=== PATIENT | female | born 1945 | race Caucasian/White ===

== ENCOUNTER 2017-02-07 19:52 | Inpatient (IN) | payer OTHER, BC ==
[~2017-02-07] VITALS: Ht 170.2 cm; Wt 102.1 kg
[~2017-02-07 19:52] MED LIST: ACET-2858 PO; ACET-2863 PO; DIAZ10TA7 PO; LEVO0.173 PO
--- NOTE | 2017-02-07 19:53 | NUR ---
Dr. Camara evaluating patient
[2017-02-07 20:05] VITALS: BP 105/65
--- NOTE | 2017-02-07 20:06 | NUR ---
PT CARMELO BLS. TAKEN TO BED 5
[2017-02-07] MEDS ORDERED: NACL 0.9% 1,000 ML IV ONE (20:10)
--- NOTE | 2017-02-07 20:10 | NUR ---
61 Y/O F BIBA. C/O ETOH. POSSIBLE OVERDOSE OF ZOLPIDEM, UNKNOWN AMOUNT, TIME, ACCDG TO PARAMEDICS, S/P FALL TODAY WITH ABRASSIONS, ON LEFT ELBOW. ALERT AND OIRIENTED X 4, GENERAL WEAKNESS NOTED, STATES HER L UPPER THIGH IS SORE. VSS, ON SPD MANAGER. ER MD MADE AWARE.
[2017-02-07 20:32] LABS: HEMATOCRIT 37.6 % (36-48); HEMOGLOBIN 12.6 g/dL (12.0-16.0); MEAN CORPUSCULAR HEMOGLOBIN 32 pg (27-31); MEAN CORPUSCULAR HGB CONC 33 g/dL (33-37); MEAN CORPUSCULAR VOLUME 96 fL (80-94); PLATELET COUNT (AUTO) 315 K/uL (140-450); WHITE BLOOD COUNT (AUTO) 25.7 K/uL (4.8-10.8)
[2017-02-07 20:43] LABS: ANION GAP 18.7 (8-16); CALCIUM 9.1 mg/dL (8.5-10.1); CARBON DIOXIDE 19.9 mmol/L (21-32); CREATININE 1.7 mg/dL (0.6-1.3); POTASSIUM 3.6 mmol/L (3.5-5.1)
[2017-02-07 20:47] LABS: BAND % (MANUAL) 14 % (0-8); LYMPHOCYTES % (MANUAL) 5 % (20-46); MONOCYTES % (MANUAL) 5 % (5-12); NEUTROPHILS % (MANUAL) 76 (43-65); PLATELET ESTIMATE ADEQUATE
[2017-02-07 20:49] LABS: TOTAL BILIRUBIN 0.6 mg/dL (0.0-1.0); TOTAL PROTEIN, SERUM 7.8 g/dL (6.4-8.2)
--- NOTE | 2017-02-07 20:55 | NUR ---
Hannah keane in [facility] - 02/07/17 at 2055 by IRAM PT TAKEN TO BED 5
--- NOTE | 2017-02-07 20:55 | NUR ---
PT TAKEN TO CT
--- NOTE | 2017-02-07 21:07 | NUR ---
PT RETURN FROM CT
--- NOTE | 2017-02-07 21:25 | NUR ---
REPORTED TO POISON CONTROL ANDTALKED TO ZABRINA, ACCORDING TO HER NO ANTIDOTE, AND TO OBSERVE AND MONITOR OF V/S, FAUZIA ORDERED BLOOD WORKS.
[2017-02-07] MEDS ORDERED: LISI30TA6 PO (21:44)
[2017-02-07] MEDS ORDERED: NITR100C7 PO (21:44)
[2017-02-07 21:55] LABS: APPEARANCE,URINE CLEAR (CLEAR); BILIRUBIN,URINE NEGATIVE (NEGATIVE); BLOOD, URINE 2+ (NEGATIVE); COLOR,URINE YELLOW (YELLOW); LEUKOCYTE ESTERASE ,URINE NEGATIVE (NEGATIVE); NITRITE, URINE NEGATIVE (NEGATIVE); PROTEIN,URINE TRACE (NEGATIVE); UGLUCOSE NEGATIVE (NEGATIVE); UROBILINOGEN,URINE 0.2 EU/dL (0.2 - 1)
[2017-02-07 22:06] LABS: BACTERIA,URINE FEW /HPF (None Seen); MUCUS,URINE 2+ /LPF (None Seen); RBC,URINE 0-5 /HPF (0-5); SQUAMOUS EPITHELIAL CELL,UR 0-5 /LPF (0-3 (FEW)); URINE AMORPHOUS URATE 1+ /HPF (None Seen); WBC,URINE 0-5 /HPF (0-5)
--- NOTE | 2017-02-07 22:20 | NUR ---
PT SLEEPING, ON GERMINATION WORKER, VSS. WILL CONT TO MONITOR.
[2017-02-07] MEDS ORDERED: ONDANSETRON 4 MG/2 ML VIAL IM/IVP PRN (23:00)
[2017-02-07] MEDS ORDERED: ACETAMINOPHEN 325 MG TAB PO PRN (23:00)
[2017-02-07] MEDS ORDERED: DOCUSATE SODIUM 100 MG GELCAP PO PRN (23:00)
[2017-02-07] MEDS ORDERED: LORazepam 1 MG TAB PO PRN ×2 (23:10)
--- NOTE | 2017-02-07 23:21 | NUR ---
DAUGHTER CALLED IN REGARDS TO CODE STATUS D/T PT STATES SHE IS DNR BUT THERE IS NO PAPER AVAILABLE STAYING THE DNR CODE. DAUGHTER STATES SHE DOES NOT KNOW ABOUT HER MOTHER DNR WISHES BUT STATES SHE WILL LOOK FOR DNR PAPER AND BRING IT TO HOSPITAL. CHARGE NURSE, AND HOUSE SUP NOTIFIED.
--- NOTE | 2017-02-07 23:27 | NUR ---
PER ER MD TO KEEP PT FULL CODE UNTIL WE ERECEIVED DNR CRISTIAN, D/T PT' S ALTERED MENTAL STATUS.
--- NOTE | 2017-02-08 | NUR ---
Patient will be admitted to care of DR PINO. Admited to TELEMETRY. Will go to room 123 A. Belongings list completed. Report to EVAN DEVRIES.
[2017-02-08 00:02] LABS: PROTHROMBIN TIME 10.6 secs (10.8-13.4)
--- NOTE | 2017-02-08 00:10 | NUR ---
RESIDENT MD EVALUATING PT.
--- NOTE | 2017-02-08 00:17 | NUR ---
PT TAKING TO FLOOR VIA GURNEY, MONITOR IN BED, ACCOMPANIED BY EMT AND RN, NO S/S OF DISTRESS NOTED UPON TRASFER.
[2017-02-08 00:25] VITALS: BP 116/57
--- NOTE | 2017-02-08 00:25 | NUR ---
Admitted from ER, with chief complaint of ALOC, S/P FALL, ALCOHOL INTOXICATION. 71 y/o, Female, AOX1, ABLE TO VERBALIZE NEEDS, CONFUSED AT TIMES, ANSWERS QUESTIONS VAGUELY AT TIMES. PT DENIES CHEST PAIN, SOB OR S/S OF ACUTE DISTRESS. SODA FLAKER IN PLACE. KUO CATH IN PLACE, DRAINING DARK ROBBIE URINE. SCDs PUT IN PLACE. IV ACCESS ASYMPTOMATIC, PATENT AND INTACT, WILL ADMINISTER IVF ORDERED oriented to call light, bed, phone,television, bathroom, smoking policy, visiting hours, procedures, ID bracelet on. Belongings list checked. DISCUSSED AND REVIEWED PLAN OF CARE WITH PT. WILL CONTINUE CONSTANT REINFORCEMENT. BED ALARM AND SAFETY MEASURES ENSURED. CALL LIGHT WITHIN REACH. WILL CONTINUE TO MONITOR.
[2017-02-08] MEDS: NACL 0.9% 1,000 ML IV SCH ×2 (00:43→15:43)
[2017-02-08 01:12] LABS: LACTIC ACID 4.6 mmol/L (0.4-2.0)
[2017-02-08 01:14] LABS: AMPHETAMINE, URINE NEG. ng/ml (NEG <=1000); BARBITURATE, URINE NEG. ng/ml (NEG <=200); BENZODIAZEPINE, URINE POS. ng/mL (NEG <=200); CANNABINOID, URINE NEG. ng/mL (NEG <=50); COCAINE, URINE NEG. ng/mL (NEG <=300); OPIATE, URINE POS. ng/mL (NEG <=2000); PHENCYCLIDINE SCREEN,URINE NEG. ng/mL (NEG <=25)
--- NOTE | 2017-02-08 01:20 | NUR ---
CALLED DR SANTOS, MADE AWARE OF LACTIC ACID 4.6 AND THAT PT IS STILL REFUSING HAVING BLOOD CULTURES DRAWN. ORDERS PENDING, WILL CARRY OUT.
[2017-02-08 02:18] LABS: MAGNESIUM 1.8 mg/dL (1.8-2.4); PHOSPHORUS 3.9 mg/dL (2.5-4.9); THYROID STIMULATING HORMONE 47.29 uIU/mL (0.34-3.74)
[2017-02-08] MEDS ORDERED: cefTRIAXone 1,000 MG VIAL ONE (02:45)
--- NOTE | 2017-02-08 02:49 | NUR ---
ADMINISTERED IVPB ROCEPHIN FIRST DOSE AT THIS TIME WITH EDUCATION ORDERED, INFUSING WELL. PROVIDED PT WITH SANDWICH AND JELLO. ALL NEEDS MET. SAFETY MEASURES ENSURED. CALL LIGHT WITHIN REACH. WILL CONTINUE TO MONITOR.
[2017-02-08 04:00] VITALS: BP 103/78
[2017-02-08] MEDS: LORazepam 1 MG TAB PO SCH ×3 (04:08→20:07)
--- NOTE | 2017-02-08 04:15 | NUR ---
PT RESTING IN BED, NO S/S OF ACUTE DISTRESS. ALL NEEDS MET. SAFETY MEASURES ENSURED. CALL LIGHT WITHIN REACH. DASHBOARD DEVELOPER IN TO TRY TO COLLECT BLOOD CULTURE, PT REFUSED AGAIN, STATING "NO, I DON'T WANT ANYTHING FOR ANALYSIS." AWARE.
[2017-02-08] MEDS ORDERED: LEVOFLOXACIN 500 MG/D5W PREMIX 100 ML IV SCH ×2 (06:15→09:00)
--- NOTE | 2017-02-08 06:58 | NUR ---
PATIENT REFUSING ABG PUNCTURE FOR ANALYSIS
--- NOTE | 2017-02-08 07:15 | NUR ---
ENDORSED PLAN OF CARE TO AM NURSE. CONDITION STABLE.
--- NOTE | 2017-02-08 07:16 | NUR ---
RECEIVED REPORT FROM NIGHT NURSE AT PT BEDSIDE. ON THE PHONE WITH DAUGHTER. NO S/S OF ACUTE DISTRESS NOTED. IV SITE PATENT AND INTACT. ALERT AND ORIENTED TO TIME AND PLACE. DENIES PAIN. AGITATED, ANXIOUS ATTEMPTING TO LEAVE HOSPITAL BED. KUO IN PLACE TO GRAVITY IN MODERATE AMOUNT. REORIENTED PATIENT TO HOSPITAL ENVIRONMENT. VERBALIZED UNDERSTANDING. PATIENT HAS PERIODS OF CONFUSION. CALL LIGHT WITHIN REACH.
--- NOTE | 2017-02-08 07:55 | NUR ---
PATIENT HAS BEEN SCREENED AND CATEGORIZED HIGH NUTRITION RISK. PATIENT WILL BE SEEN WITHIN 1-2 DAYS OF ADMISSION. 02/08/17-02/09/[address]
[2017-02-08 08:00] VITALS: BP 130/60
[2017-02-08] MEDS ORDERED: LORazepam 2 MG/ML VIAL IM/IVP PRN ×2 (08:15)
[2017-02-08] MEDS ORDERED: CLINICAL MONITORING MC PRN (08:20)
[2017-02-08] MEDS: LISINOPRIL 10 MG TAB PO SCH (08:21)
[2017-02-08] MEDS: MULTIVITAMIN 1 TAB PO SCH (08:21)
[2017-02-08] MEDS: THIAMINE 100 MG TAB PO SCH (08:21)
[2017-02-08] MEDS: FOLIC ACID 1 MG TAB PO SCH (08:22)
[2017-02-08] MEDS: LACTOBACILLUS RHAMNOSUS GG 1 EACH CAP PO SCH (08:22)
--- NOTE | 2017-02-08 08:40 | NUR ---
PATIENT BECOMING RESTLESS, ATTEMPTING TO GET UP WITHOUT ASSISTANCE. PER DR. DUMAS GIVE ATIVAN PO 2MG ORDERED PER AGITATION/ANXIETY. MEDICATION ADMINISTERED ORIENTED PT BACK INTO BED.
[2017-02-08] MEDS ORDERED: NITROFURANTOIN 100 MG CAP PO SCH (09:00)
[2017-02-08] MEDS ORDERED: LEVOTHYROXINE 0.1 MG, LEVOTHYROXINE 0.075 MG PO SCH ×2 (09:00)
[2017-02-08] MEDS ORDERED: NON-FORMULARY ITEM (Levothyroxine Sodium* (Synthroid*) 0.175 MG) PO SCH (09:00)
[2017-02-08] MEDS ORDERED: TAMSULOSIN 0.4 MG CAP PO SCH (09:00)
--- NOTE | 2017-02-08 11:20 | NUR ---
PATIENT SITTING UP AT BEDSIDE TALKING WITH FRIEND. NO S/S OF ACUTE DISTRESS NOTED.
--- NOTE | 2017-02-08 11:36 | NUR ---
PATIENT SLEEPING IN BED. NO S/S OF ACUTE DISTRESS.
[2017-02-08 12:00] VITALS: BP 150/52
[2017-02-08] MEDS: CLINDAMYCIN 600 MG in DEXTROSE 5% 50 ML IV SCH ×3 (12:47→23:52)
[2017-02-08] MEDS: HYDROcodone/APAP 7.5/325 MG 1 TAB PO PRN ×2 (12:50→20:27)
[2017-02-08 13:00] LABS: BASOPHILS # (AUTO) 0.1 K/uL (0.00-0.22); BASOPHILS % (AUTO) 1.2 % (0.0-2.0); EOSINOPHILS # (AUTO) 0.2 K/uL (0-0.4); EOSINOPHILS % (AUTO) 1.8 % (0.0-4.0); HEMATOCRIT 33.4 % (36-48); LYMPHOCYTES # (AUTO) 2.5 K/uL (2.5-16.5); LYMPHOCYTES % (AUTO) 23.2 % (20.5-51.1); MEAN CORPUSCULAR HEMOGLOBIN 31 pg (27-31); MEAN CORPUSCULAR HGB CONC 33 g/dL (33-37); MEAN CORPUSCULAR VOLUME 96 fL (80-94); MONOCYTES # (AUTO) 0.6 K/uL (0.8-1.0); MONOCYTES % (AUTO) 5.9 % (1.7-9.3); NEUTROPHILS # (AUTO) 7.4 K/uL (1.8-7.7); NEUTROPHILS % (AUTO) 67.9 % (42.2-75.2); PLATELET COUNT (AUTO) 270 K/uL (140-450); RED CELL DISTRIBUTION WIDTH 13.2 % (11.6-13.7); WHITE BLOOD COUNT (AUTO) 10.8 K/uL (4.8-10.8)
[2017-02-08 13:20] LABS: ANION GAP 8.9 (8-16); CALCIUM 8.4 mg/dL (8.5-10.1); CARBON DIOXIDE 28.3 mmol/L (21-32); CREATININE 1.3 mg/dL (0.6-1.3); POTASSIUM 4.2 mmol/L (3.5-5.1)
[2017-02-08 13:28] LABS: MAGNESIUM 1.8 mg/dL (1.8-2.4); PHOSPHORUS 2.5 mg/dL (2.5-4.9)
--- NOTE | 2017-02-08 14:09 | NUR ---
02/08/17 RD INITIAL ASSESSMENT COMPLETED PLEASE REFER TO NUTRITION ASSESSMENT UNDER CARE ACTIVITY FOR ESTIMATED NUTRITIONAL NEEDS. 1. CONTINUE CARDIAC DIET 2. RD TO FOLLOW-UP IN 3-5 DAYS, MODERATE RISK KIP ANDERSON RD
[2017-02-08] MEDS ORDERED: DOXY25TA PO (14:36)
[2017-02-08] MEDS ORDERED: HYDR-4452 PO (14:36)
[2017-02-08] MEDS ORDERED: YEAST (14:36)
[2017-02-08] MEDS ORDERED: ZOLP10TA6 PO (14:36)
--- NOTE | 2017-02-08 14:52 | NUR ---
SS NOTE: I ATTEMPTED TO SPEAK WITH PT BEDSIDE, PT WAS AGITATED. PT STATED THAT SHE IS CURRENTLY STAYING IN A MOTEL WHILE HER HOME IS GETTING REPAIRED. I ATTEMPTED TO ASK PT ADDITIONAL QUESTIONS REGARDING HER PRIOR LEVEL OF FUNCTIONING AND PROVIDE ETOH ABUSE RESOURCES BUT PT REFUSED TO PROVIDE ANY ADDITIONAL INFORMATION, WILL FOLLOW UP WITH PT AT A LATER TIME.
[2017-02-08 16:00] VITALS: BP 106/55
--- NOTE | 2017-02-08 16:00 | NUR ---
PT SLEEPING IN BED. NO S/S OF ACUTE DISTRESS NOTED.
--- NOTE | 2017-02-08 16:28 | NUR ---
ASLEEP EASILY AWAKENS IN SFW POSITION NO RESPIRATORY DISTRESS NOTED PATIENT REFUSING INCENTIVE SPIROMETRY PROCEDURE AT THIS TIME PATIENT STATES "WANTS TO SLEEP WILL DO LATER ON"
--- NOTE | 2017-02-08 18:00 | NUR ---
ASSISTED PATIENT TO BEDSIDE COMMODE. AMBULATORY WITH ASSIST. KUO IN PLACE TO GRAVITY IN MODERATE AMOUNT. NO S/S OF ACUTE DISTRESS NOTED.
--- NOTE | 2017-02-08 19:19 | NUR ---
ENDORSED PLAN OF CARE TO NIGHT RN KAYCE AT PT BEDSIDE. NO S/S OF ACUTE DISTRESS NOTED.
--- NOTE | 2017-02-08 19:20 | NUR ---
RECEIVED REPORT FROM AM NURSE. PT RESTING IN BED, AOX3, ABLE TO VERBALIZE NEEDS. NO S/S OF ACUTE DISTRESS. LOCATION AND MEASUREMENT TECHNICIAN IN PLACE. KUO CATH IN PLACE, DRAINING CLEAR ROBBIE URINE. SCDs IN PLACE. IV ACCESS ASYMPTOMATIC, PATENT AND INTACT. IVF INFUSING WELL. DISCUSSED AND REVIEWED PLAN OF CARE WITH PT. PT STATED "OKAY." ALL NEEDS MET. SAFETY MEASURES ENSURED. CALL LIGHT WITHIN REACH. WILL CONTINUE TO MONITOR.
[2017-02-08 20:00] VITALS: BP 123/57
--- NOTE | 2017-02-08 20:07 | NUR ---
PT SLEEPING BUT AROUSABLE. ADMINISTERED ATIVAN PO WITH EDUCATION. PT STATED "OKAY," TOLERATED MED WELL. ALL NEEDS MET. SAFETY MEASURES ENSURED. CALL LIGHT WITHIN REACH. WILL CONTINUE TO MONITOR.
--- NOTE | 2017-02-08 20:30 | NUR ---
PT C/O PAIN. SEE PAIN ASSESSMENT. ADMINISTERED PAIN MED ORDERED. PT TOLERATED MED WELL. ALL NEEDS MET. SAFETY MEASURES ENSURED. CALL LIGHT WITHIN REACH. WILL CONTINUE TO MONITOR.
[2017-02-09] VITALS: BP 151/76
[2017-02-09] MEDS: MORPHINE SULFATE 2 MG/ML SYR IVP PRN ×3 (00:09→23:41)
--- NOTE | 2017-02-09 00:09 | NUR ---
PT C/O PAIN. SEE PAIN ASSESSMENT. ADMINISTERED PAIN MEDICATION WITH EDUCATION ORDERED. PT VERBALIZED UNDERSTANDING, TOLERATED MED WELL. ALL NEEDS MET. SAFETY MEASURES ENSURED. CALL LIGHT WITHIN REACH. WILL CONTINUE TO MONITOR.
[2017-02-09] MEDS: NACL 0.9% 1,000 ML IV SCH ×2 (02:01→15:17)
[2017-02-09] MEDS: HYDROcodone/APAP 7.5/325 MG 1 TAB PO PRN ×2 (03:45→08:07)
[2017-02-09 04:00] VITALS: BP 125/58
[2017-02-09] MEDS: LORazepam 1 MG TAB PO SCH ×3 (05:14→20:18)
[2017-02-09] MEDS: CLINDAMYCIN 600 MG in DEXTROSE 5% 50 ML IV SCH ×4 (05:15→23:32)
[2017-02-09 05:53] LABS: BASOPHILS # (AUTO) 0.2 K/uL (0.00-0.22); BASOPHILS % (AUTO) 1.8 % (0.0-2.0); EOSINOPHILS # (AUTO) 0.2 K/uL (0-0.4); EOSINOPHILS % (AUTO) 2.5 % (0.0-4.0); HEMATOCRIT 30.9 % (36-48); HEMOGLOBIN 10.2 g/dL (12.0-16.0); LYMPHOCYTES # (AUTO) 2.3 K/uL (2.5-16.5); LYMPHOCYTES % (AUTO) 27.3 % (20.5-51.1); MEAN CORPUSCULAR HEMOGLOBIN 32 pg (27-31); MEAN CORPUSCULAR HGB CONC 33 g/dL (33-37); MEAN CORPUSCULAR VOLUME 97 fL (80-94); MONOCYTES # (AUTO) 0.5 K/uL (0.8-1.0); MONOCYTES % (AUTO) 5.5 % (1.7-9.3); NEUTROPHILS # (AUTO) 5.3 K/uL (1.8-7.7); NEUTROPHILS % (AUTO) 62.9 % (42.2-75.2); PLATELET COUNT (AUTO) 214 K/uL (140-450); RED BLOOD CELL COUNT(AUTO) 3.19 MIL/uL (4.20-5.40); WHITE BLOOD COUNT (AUTO) 8.5 K/uL (4.8-10.8)
[2017-02-09 06:06] LABS: ANION GAP 10.2 (8-16); CALCIUM 8.3 mg/dL (8.5-10.1); CARBON DIOXIDE 27.5 mmol/L (21-32); CREATININE 1.2 mg/dL (0.6-1.3); POTASSIUM 3.7 mmol/L (3.5-5.1)
[2017-02-09 06:15] LABS: MAGNESIUM 1.8 mg/dL (1.8-2.4)
[2017-02-09] MEDS: LEVOTHYROXINE 0.1 MG TAB PO SCH (06:49)
--- NOTE | 2017-02-09 07:20 | NUR ---
ENDORSED PLAN OF CARE TO AM NURSE. CONDITION STABLE.
--- NOTE | 2017-02-09 07:21 | NUR ---
RECEIVED REPORT BY EVAN DEVRIES. PATIENT AWAKE, ALERT AND ORIENTED X3. NO SIGNS AND SYMPTOMS OF RESPIRATORY DISTRESS NOTED. PATIENT REPORTED PAIN LEVEL OF 10 OUT OF 10. NOTIFIED MD. MEDICATE ORDERED. AMBULATORY WITH ASSISTANCE. SCD'S IN PLACE. PERIPHERAL IV CLEAN, DRY, INTACT, AND PATENT. CALL LIGHT WITHIN REACH.
[2017-02-09 08:00] VITALS: BP 153/75
[2017-02-09] MEDS: TAMSULOSIN 0.4 MG CAP PO SCH (08:02)
[2017-02-09] MEDS: LEVOFLOXACIN 250 MG/D5 PREMIX 50 ML IV SCH (08:03)
[2017-02-09] MEDS: LACTOBACILLUS RHAMNOSUS GG 1 EACH CAP PO SCH (08:03)
[2017-02-09] MEDS: FOLIC ACID 1 MG TAB PO SCH (08:03)
[2017-02-09] MEDS: THIAMINE 100 MG TAB PO SCH (08:04)
[2017-02-09] MEDS: LISINOPRIL 10 MG TAB PO SCH (08:06)
[2017-02-09] MEDS: MULTIVITAMIN 1 TAB PO SCH (08:07)
--- NOTE | 2017-02-09 08:21 | NUR ---
PATIENT SEEN BY DR. BOGGS AT BEDSIDE. OKAY TO REMOVE KUO CATH AT THIS TIME. PATIENT C/O RIGHT SIDED ABDOMINAL PAIN, NEW ORDERS RECEIVED. REMOVED KUO CATH AT BEDSIDE, WILL CONTINUE TO MONITOR.
[2017-02-09] MEDS: SODIUM PHOS / POTASSIUM PHOS 1 PKT PDR PO SCH ×4 (09:00→17:23)
[2017-02-09 09:13] LABS: HEMOGLOBIN A1C 4.5 % (4.8-5.6)
[2017-02-09 09:14] LABS: T4 (THYROXINE) 4.4 ug/dL (4.5 - 12.0)
--- NOTE | 2017-02-09 09:15 | NUR ---
PATIENTS DAUGHTER AT BEDSIDE, SHE SPOKE WITH DR. HARRIS.
--- NOTE | 2017-02-09 09:20 | NUR ---
ASSISTED PATIENT WITH AMBULATION TO THE RESTROOM. NO S/S OF DISTRESS NOTED.
[2017-02-09] MEDS ORDERED: DULoxetine 30 MG CAPDR PO SCH (10:59)
[2017-02-09] MEDS: MUPIROCIN 2% OINT 22 GM TUBE TP SCH (11:00)
[2017-02-09] MEDS: CHLORHEXADINE GLUC 2% CLOTH TP SCH (11:00)
--- NOTE | 2017-02-09 11:00 | NUR ---
SS NOTE: I SPOKE WITH PT AND PT'S DTR, HEIDY STILES. PT STATED THAT SHE IS IN AGREEMENT WITH GOING TO SNF FOR PT AND [facility] SHE ALSO STATED THAT [facility] AND THIRD [facility].
--- NOTE | 2017-02-09 11:16 | NUR ---
SS NOTE: PER SUDHEER FROM [facility] ([phone]), PT CAN GO TO ROOM 21B UNDER DR. Burt PEREZ WHEN PT IS READY FOR DISCHARGE. PT'S DTRHEIDY MADE AWARE OF THE ABOVE INFORMATION.
[2017-02-09 12:00] VITALS: BP 136/66
--- NOTE | 2017-02-09 13:55 | NUR ---
ASSISTED PATIENT WITH AMBULATION TO THE RESTROOM. PATIENT HAD NO SIGNS AND SYMPTOMS OF DISTRESS AT THIS TIME. PATIENT COMPLAINED OF PAIN WHEN LAID DOWN IN BED. WILL MEDICATE ORDERED.
[2017-02-09] MEDS: oxyCODONE/APAP 5/325 MG 1 TAB TAB PO PRN (14:03)
[2017-02-09 16:00] VITALS: BP 131/58
--- NOTE | 2017-02-09 19:13 | NUR ---
GAVE REPORT TO TAYLOR AT BEDSIDE. PATIENT AWAKE, NO SIGNS AND SYMPTOMS OF DISTRESS NOTED.
--- NOTE | 2017-02-09 19:14 | NUR ---
RECEIVED REPORT FROM DAY RN FOR CONTINUITY OF CARE. PATIENT IS ALERT AND ORIENTED X3, DISCUSSED PLAN OF CARE WITH PATIENT, VERBALIZED UNDERSTANDING BUT REINFORCEMENT PROVIDED. SHIFT ASSESSMENT DONE, VITAL SIGNS STABLE. NO S/SX OF RESPIRATORY DISTRESS NOTED ON ROOM AIR. PATIENT C/O PAIN WILL MEDICATE PER MD ORDER. IV TO LT HAND PATENT AND INFUSING FLUIDS WELL. PATIENT HAS LEFT ELBOW ABRASION AND BRUISING NOTED TO KNEES AND UPPER ARM. SAFETY/FALL/ CONTACT PRECAUTIONS ENFORCED, CALL LIGHT WITHIN REACH. WILL CONTINUE TO MONITOR.
[2017-02-09 20:00] VITALS: BP 140/63
--- NOTE | 2017-02-09 20:18 | NUR ---
DUE MEDICATIONS ADMINISTERED PER MD ORDER. PATIENT MEDICATED FOR C/O ABDOMINAL PAIN, VITAL SIGNS STABLE. CALL LIGHT WITHIN REACH.
--- NOTE | 2017-02-09 22:00 | NUR ---
PATIENT ASSISTED TO BATHROOM , VOIDED. RETURNED TO BED AND REPOSITIONED FOR COMFORT, CALL LIGHT WITHIN REACH. WILL CONTINUE TO MONITOR.
--- NOTE | 2017-02-09 23:32 | NUR ---
DUE ANTIBIOTICS ADMINISTERED, TOLERATED WELL. PT C/O BACK PAIN, WILL MEDICATE PER MD ORDER. CALL LIGHT WITHIN REACH, WILL CONTINUE TO MONITOR.
[2017-02-10] VITALS (7 sets, daily range): BP systolic 120–157; BP diastolic 57–90
[2017-02-10] MEDS: oxyCODONE/APAP 5/325 MG 1 TAB TAB PO PRN (01:48)
--- NOTE | 2017-02-10 01:48 | NUR ---
PT C/O BACK PAIN, MEDICATED PER MD ORDER, VITAL SIGNS STABLE. REPOSITIONED PATIENT AND MADE COMFORTABLE. CALL LIGHT WITHIN REACH.
[2017-02-10] MEDS: MORPHINE SULFATE 2 MG/ML SYR IVP PRN ×3 (04:04→23:18)
[2017-02-10] MEDS: NACL 0.9% 1,000 ML IV SCH (04:04)
--- NOTE | 2017-02-10 04:04 | NUR ---
PATIENT C/O BACK PAIN, MEDICATED PER MD ORDER. VITAL SIGNS REMAIN STABLE. PATIENT ASSISTED TO RESTROOM, VOIDED. RETURNED TO BED AND MADE COMFORTABLE. CALL LIGHT WITHIN REACH, SAFETY MEASURES ENFORCED.
[2017-02-10] MEDS: LORazepam 1 MG TAB PO SCH ×3 (04:33→20:54)
[2017-02-10 05:58] LABS: BASOPHILS # (AUTO) 0.2 K/uL (0.00-0.22); EOSINOPHILS # (AUTO) 0.2 K/uL (0-0.4); HEMATOCRIT 31.5 % (36-48); HEMOGLOBIN 10.3 g/dL (12.0-16.0); LYMPHOCYTES # (AUTO) 2.5 K/uL (2.5-16.5); LYMPHOCYTES % (AUTO) 32.5 % (20.5-51.1); MEAN CORPUSCULAR HEMOGLOBIN 32 pg (27-31); MEAN CORPUSCULAR HGB CONC 33 g/dL (33-37); MEAN CORPUSCULAR VOLUME 97 fL (80-94); MONOCYTES # (AUTO) 0.5 K/uL (0.8-1.0); MONOCYTES % (AUTO) 6.5 % (1.7-9.3); NEUTROPHILS # (AUTO) 4.3 K/uL (1.8-7.7); PLATELET COUNT (AUTO) 227 K/uL (140-450); RED BLOOD CELL COUNT(AUTO) 3.24 MIL/uL (4.20-5.40); RED CELL DISTRIBUTION WIDTH 12.9 % (11.6-13.7); WHITE BLOOD COUNT (AUTO) 7.7 K/uL (4.8-10.8)
[2017-02-10] MEDS: CLINDAMYCIN 600 MG in DEXTROSE 5% 50 ML IV SCH ×4 (06:16→23:18)
[2017-02-10] MEDS: LEVOTHYROXINE 0.1 MG TAB PO SCH (06:17)
--- NOTE | 2017-02-10 06:17 | NUR ---
DUE MEDICATIONS ADMINISTERED, TOLERATED WELL. PATIENT RESTING IN BED, NO DISTRESS NOTED. CALL LIGHT WITHIN REACH.
[2017-02-10 06:23] LABS: ANION GAP 12.7 (8-16); CALCIUM 8.3 mg/dL (8.5-10.1); CARBON DIOXIDE 23.9 mmol/L (21-32); CREATININE 0.8 mg/dL (0.6-1.3); POTASSIUM 3.6 mmol/L (3.5-5.1)
--- NOTE | 2017-02-10 07:21 | NUR ---
ENDORSED PATIENT TO DAY RN AT BEDSIDE, PATIENT IS IN STABLE CONDITION.
--- NOTE | 2017-02-10 07:30 | NUR ---
RECEIVED PT ON BED AWAKE. NO SOB NOTED. NO C/O PAIN AT THIS TIME. IV TO LEFT HAND PATENT AND INTACT. CHEST, DIMINISHED AIR ENTRY TO THE BASES, OTHERWISE CLEAR. ABDOMEN SOFT, BOWEL SOUNDS PRESENT. INSTRUCTED PT TO CALL FOR ASSISTANCE, CALL LIGHT WITHIN REACH. PT VERBALIZED PARTIAL UNDERSTANDING.
--- NOTE | 2017-02-10 08:00 | NUR ---
RECEIVED PT ON BED AWAKE. NO SOB NOTED. NO C/O PAIN AT THIS TIME. IV TO LEFT HAND PATENT AND INTACT. CHEST, DIMINISHED AIR ENTRY TO THE BASES, OTHERWISE CLEAR. ABDOMEN SOFT, BOWEL SOUNDS PRESENT. INSTRUCTED PT TO CALL FOR ASSISTANCE, CALL LIGHT WITHIN REACH. PT VERBALIZED UNDERSTANDING. Addendum: 02/10/17 at 1026 by Samia Hernandez RN DISREGARD ABOVE NOTES. WRONG ENTRY.
[2017-02-10] MEDS: LISINOPRIL 10 MG TAB PO SCH (08:53)
[2017-02-10] MEDS: THIAMINE 100 MG TAB PO SCH (08:54)
[2017-02-10] MEDS: LACTOBACILLUS RHAMNOSUS GG 1 EACH CAP PO SCH (08:54)
[2017-02-10] MEDS: FOLIC ACID 1 MG TAB PO SCH (08:54)
[2017-02-10] MEDS: TAMSULOSIN 0.4 MG CAP PO SCH (08:54)
[2017-02-10] MEDS: MULTIVITAMIN 1 TAB PO SCH (08:54)
[2017-02-10] MEDS: DULoxetine 30 MG CAPDR PO SCH (08:55)
[2017-02-10] MEDS: LEVOFLOXACIN 250 MG/D5 PREMIX 50 ML IV SCH (09:07)
[2017-02-10] MEDS: CHLORHEXADINE GLUC 2% CLOTH TP SCH (11:00)
[2017-02-10] MEDS ORDERED: IMI25 PO (11:44)
[2017-02-10] MEDS: MUPIROCIN 2% OINT 22 GM TUBE TP SCH (13:14)
--- NOTE | 2017-02-10 15:15 | NUR ---
PATIENT STATED A PAIN OF 9 OUT OF 10.
--- NOTE | 2017-02-10 15:15 | NUR ---
GAVE PATIENT MORPHINE 2MG/1ML VIA IV. SCANNED PATIENT AND SCANNED MEDICATION, UNABLE TO SAVE.
--- NOTE | 2017-02-10 19:20 | NUR ---
pt resting. no signs of pain noted at this time. endorsed to next shift nurse for continuity of care.
--- NOTE | 2017-02-10 19:25 | NUR ---
RECEIVED FROM AM RN IN BED SLEEPING. AROUSABLE WHEN CALLED BY NAME OR TOUCHED. ABLE TO VERBALIZE NEEDS WELL. TELEMETRY MONITORING IN PLACE AND DX OF ETOH. CALL LIGHT WITH IN REACH AND CARE PLANS FOR THE NIGHT DISCUSSED WITH HER. BED ALARM ON. ENCOURAGED TO CALL FOR ANY HELP SHE MAY NEED OR IF IN PAIN.
--- NOTE | 2017-02-10 22:00 | NUR ---
PT. ABLE TO USE CALL LIGHT FOR HELP. ASSISTED BY SENIOR GAME DESIGNER TO RESTROOM INSIDE ROOM TO URINATE. TOLERATED WALKING INDEPENDENTLY WITH STANDBY ASSIST BY SENIOR GAME DESIGNER.
--- NOTE | 2017-02-10 23:15 | NUR ---
MEDICATED WITH MORPHINE 2 MG IVP REQUESTED RT "I REALLY HURT ALL OVER " PT. GRIMACING . ASSISSTED TO RESTROOM TO URINATE. NO UNTOWARD INCIDENT .
--- NOTE | 2017-02-11 00:12 | NUR ---
SLEEPING AT THIS TIME.
[2017-02-11] MEDS: oxyCODONE/APAP 5/325 MG 1 TAB TAB PO PRN ×2 (01:38→11:06)
--- NOTE | 2017-02-11 01:39 | NUR ---
PT. WOKE UP AND ASSISTED TO BRP BY FAMILY REUNIFICATION SPECIALIST. PER PT. SHE IS STILL IN PAIN AND WONDERING IF I GAVE HER PAIN RELIEVER. PT. HAS EPISODES OF FORGETFULNESS. EXPLAINED TO HER THAT SHE SAID THAT SHE DO NOT WANT ANYTHING WITH TYLENOL RT IT IS NOT EFFECTIVE ON HER . PER PT. MORPHINE IVP THAT I GAVE HER IS NOT EFFECTIVE RIGHT NOW. PREFERS PERCOCET. ADMINISTERED REQUESTED. PT. BACK TO SLEEP.
--- NOTE | 2017-02-11 02:46 | NUR ---
TALKED TO THE DAUGHTER ON THE PHONE/BILLY AND TOLD ME THAT HER MOTHER IS REALLY NOT ALL THERE AND THAT LATELY SHE HAS BEEN MEAN AND TELLING LIES. PACIFIED DAUGHTER THAT SHE IS SICK AND THAT WHERE SHE IS BEING TRANSFERRED THERE WILL BE DOCTORS ASSIGNED TO HER IN THERE TO TAKE CARE OF HER TOO. DAUGHTER THANKFUL OF INFORMATION AND HELP FROM OUR FACILITY. CHECKED ON PT. AND AT PRESENT SLEEPING. BED ALARM ON. WILL MONITOR.
[2017-02-11 04:00] VITALS: BP 130/75
[2017-02-11] MEDS: NACL 0.9% 1,000 ML IV SCH (04:20)
--- NOTE | 2017-02-11 04:34 | NUR ---
SLEEPING. NO RESTLESSNESS. NO SOB. CALL LIGHT WITH IN REACH. TELEMETRY MONITORING. FALL PRECAUTION.
[2017-02-11] MEDS: LEVOTHYROXINE 0.1 MG TAB PO SCH (05:32)
[2017-02-11] MEDS: CLINDAMYCIN 600 MG in DEXTROSE 5% 50 ML IV SCH ×2 (05:32→12:39)
[2017-02-11] MEDS: LORazepam 1 MG TAB PO SCH ×2 (05:33→14:07)
[2017-02-11 06:15] LABS: BASOPHILS # (AUTO) 0.1 K/uL (0.00-0.22); BASOPHILS % (AUTO) 1.6 % (0.0-2.0); EOSINOPHILS # (AUTO) 0.2 K/uL (0-0.4); EOSINOPHILS % (AUTO) 2.2 % (0.0-4.0); HEMOGLOBIN 11.5 g/dL (12.0-16.0); LYMPHOCYTES # (AUTO) 2.7 K/uL (2.5-16.5); LYMPHOCYTES % (AUTO) 33.8 % (20.5-51.1); MEAN CORPUSCULAR HEMOGLOBIN 33 pg (27-31); MEAN CORPUSCULAR HGB CONC 34 g/dL (33-37); MEAN CORPUSCULAR VOLUME 97 fL (80-94); MONOCYTES # (AUTO) 0.5 K/uL (0.8-1.0); MONOCYTES % (AUTO) 5.9 % (1.7-9.3); NEUTROPHILS # (AUTO) 4.6 K/uL (1.8-7.7); NEUTROPHILS % (AUTO) 56.5 % (42.2-75.2); PLATELET COUNT (AUTO) 244 K/uL (140-450); RED BLOOD CELL COUNT(AUTO) 3.51 MIL/uL (4.20-5.40); WHITE BLOOD COUNT (AUTO) 8.1 K/uL (4.8-10.8)
--- NOTE | 2017-02-11 06:38 | NUR ---
AWAKE AT THIS TIME. ASSISTED TO RESTROOM. USES CALL LIGHT FOR HELP. PT. NOTED WITH CONFUSION AT TIMES. TELEMETRY MONITORING. IVF SITE TO LFA INTACT AND NO INFILTRATION.
[2017-02-11 06:40] LABS: ANION GAP 14.9 (8-16); CALCIUM 8.9 mg/dL (8.5-10.1); CARBON DIOXIDE 23.6 mmol/L (21-32); CREATININE 0.8 mg/dL (0.6-1.3); POTASSIUM 3.5 mmol/L (3.5-5.1)
--- NOTE | 2017-02-11 07:17 | NUR ---
ENDORSED TO THE NEXT RN FOR CONTINUITY OF CARE. AWAKE AND ALERT. NO SOB. NO PAIN COMPLAINTS DONE. TELEMETRY MONITORING. INDEPENDENT.
--- NOTE | 2017-02-11 07:30 | NUR ---
RECEIVED PT ON BED AWAKE AND ALERT. NO SOB NOTED. NO C/O PAIN AT THIS TIME. IV TO LEFT HAND PATENT AND INTACT. CHEST, DIMINISHED AIR ENTRY TO THE BASES, OTHERWISE CLEAR. ABDOMEN SOFT, BOWEL SOUNDS PRESENT. INSTRUCTED PT TO CALL FOR ASSISTANCE, CALL LIGHT WITHIN REACH. PT VERBALIZED PARTIAL UNDERSTANDING.
[2017-02-11 08:00] VITALS: BP 155/80
[2017-02-11] MEDS: LACTOBACILLUS RHAMNOSUS GG 1 EACH CAP PO SCH (08:45)
[2017-02-11] MEDS: DULoxetine 30 MG CAPDR PO SCH (08:45)
[2017-02-11] MEDS: TAMSULOSIN 0.4 MG CAP PO SCH (08:45)
[2017-02-11] MEDS: LEVOFLOXACIN 250 MG/D5 PREMIX 50 ML IV SCH (08:45)
[2017-02-11] MEDS: FOLIC ACID 1 MG TAB PO SCH (08:46)
[2017-02-11] MEDS: THIAMINE 100 MG TAB PO SCH (08:46)
[2017-02-11] MEDS: MULTIVITAMIN 1 TAB PO SCH (08:46)
[2017-02-11] MEDS: LISINOPRIL 10 MG TAB PO SCH (08:46)
[2017-02-11] MEDS: MORPHINE SULFATE 2 MG/ML SYR IVP PRN (08:48)
--- NOTE | 2017-02-11 09:30 | NUR ---
PT ABLE TO GO TO THE BATHROOM WITH ASSISTANCE, ACTIVITY TOLERATED WELL. NO COMPLAINTS MADE.
[2017-02-11] MEDS ORDERED: LORA-476 PO (09:47)
[2017-02-11] MEDS ORDERED: TAMS0.4C96 PO (09:47)
[2017-02-11] MEDS ORDERED: CHLO118S2 TP (09:47)
[2017-02-11] MEDS ORDERED: ONDA2SOL45 IM/IVP (09:47)
[2017-02-11] MEDS ORDERED: THIA-8 PO (09:47)
[2017-02-11] MEDS ORDERED: ACET-1182 PO (09:47)
[2017-02-11] MEDS ORDERED: FOLI1TAB90 PO (09:47)
[2017-02-11] MEDS ORDERED: MULT-405 PO (09:47)
[2017-02-11] MEDS ORDERED: DOCU-67 PO (09:47)
[2017-02-11] MEDS ORDERED: BACTO TP (09:47)
[2017-02-11] MEDS ORDERED: DULO30EC PO (09:47)
[2017-02-11] MEDS ORDERED: ATI2I IM/IVP (09:47)
[2017-02-11] MEDS ORDERED: ACET-9494 PO (09:47)
--- NOTE | 2017-02-11 11:00 | NUR ---
PT'S DAUGHTER HEIDY OVER THE PHONE AND MADE HER AWARE OF THE TRANSFER TO [facility]. HEIDY AGREED WITH THE TRANSFER.
[2017-02-11] MEDS: CHLORHEXADINE GLUC 2% CLOTH TP SCH (11:06)
[2017-02-11] MEDS: MUPIROCIN 2% OINT 22 GM TUBE TP SCH (11:06)
[2017-02-11] MEDS ORDERED: LACT10CA PO (11:11)
[2017-02-11] MEDS ORDERED: LEVO750T2 PO (11:11)
[2017-02-11 12:00] VITALS: BP 148/76
--- NOTE | 2017-02-11 13:30 | NUR ---
REPORT GIVEN TO JOSE ALFREDO AT [facility]. PT IS GOING TO ROOM 21B UNDER DR. PEREZ.
--- NOTE | 2017-02-11 14:30 | NUR ---
DISCHARGE INSTRUCTIONS GIVEN TO PT WHICH VERBALIZED FULL UNDERSTANDING OF THE INSTRUCTION AND THE REASON BY SHE IS BEING TRANSFERRED TO A SNF (FOR PHYSICAL THERAPY.)
--- NOTE | 2017-02-11 15:40 | NUR ---
[facility] PICKED UP AND WHEELED OUT PT IN STABLE CONDITION. NO SOB NOTED. NO C/O PAIN AT THIS TIME. PT'S HOME MEDS STORED IN PHARMACY WERE SENT WITH PT AND GIVEN TO TRANSPORT PERSONNEL AND INSTRUCTED TO GIVE IT TO PT'S ASSIGNED NURSE IN [facility].
[2017-02-13 06:21] LABS: FOLIC ACID 10.1 ng/mL (>3.0)
== END 2017-02-11 15:40 | DRG 871 ==
LOC: MED 19:52 → MTU 23:06
PROVIDERS: ADMIT Family Medicine; ATTEND Family Medicine
DX: A41.9 Sepsis, unspecified organism (principal); G92 Toxic encephalopathy; N17.0 Acute kidney failure with tubular necrosis; E87.2 Acidosis; J98.11 Atelectasis; F33.1 Major depressive disorder, recurrent, moderate; N39.0 Urinary tract infection, site not specified; F10.10 Alcohol abuse, uncomplicated; I10 Essential (primary) hypertension; R65.20 Severe sepsis without septic shock; E03.9 Hypothyroidism, unspecified; G89.4 Chronic pain syndrome; I70.0 Atherosclerosis of aorta; G47.00 Insomnia, unspecified; F41.9 Anxiety disorder, unspecified; M48.00 Spinal stenosis, site unspecified; E66.9 Obesity, unspecified; F10.129 Alcohol abuse with intoxication, unspecified; R31.9 Hematuria, unspecified; T83.098A Other mechanical complication of other urinary catheter, initial encounter; D64.9 Anemia, unspecified; Z91.14 Patient's other noncompliance with medication regimen; Z88.0 Allergy status to penicillin; Z68.35 Body mass index [BMI] 35.0-35.9, adult; Z22.322 Carrier or suspected carrier of Methicillin resistant Staphylococcus aureus
CPT/HCPCS: 36415; 70450; 71010; 73030; 73502; 80048; 80053; 80305; 81001; 82607; 82728; 82746; 83036; 83540; 83605; 83735; 83880; 84100; 84436; 84443; 84479; 85025; 85045; 85610; 85730; 87040; 87081; 87086; 93005; 96360; 97110; 97116; 97530; 99285; G0482; J0696; J1956; J2270; J2405; J3490; J7030; J7060; Q0092